=== PATIENT | female | born 1980 | race Caucasian/White ===

== ENCOUNTER 2018-12-24 07:42 | Emergency (ER) | payer MEDICAID ==
[~2018-12-24] VITALS: Ht 160 cm; Wt 72.0 kg
[~2018-12-24 07:42] MED LIST: AMOX500C2 PO; CIPR500T4 PO; FIORICET PO; HYDR-3498 PO; IBUP-1541 PO; IBUP-1542 PO; METH500T8 PO; OMEP40CA3 PO; TRAM50TA2 PO
[2018-12-24 07:45] VITALS: BP 155/72; PULSE 93; RESP 16; Ht 160 cm; Wt 72.0 kg
[2018-12-24] MEDS ORDERED: NAPR-985 PO (09:14)
--- NOTE | 2018-12-24 09:52 | ERD ---
ER Documentation Chief Complaint Chief Complaint pt is bib self with c/o back and abd pain for a few days HPI 38-year-old female presenting with generalized abdominal pain and back pain for a few days. She states is in the flank region. She has an IUD but she is unsure she is possibly . Her last bowel movement was about 1 hour prior to my evaluation. Denies any vomiting or diarrhea. Denies fevers. Has not taken medications for symptoms. Denies dysuria. Denies medical problems. NKDA. Surgical history denies. Social history denies ROS All systems reviewed and are negative except as per history of present illness. Medications Home Meds Active Scripts Naproxen* (Naprosyn*) 500 Mg Tablet, 500 MG PO BID PRN for PAIN AND/OR INFLAMMATION, #30 TAB Prov:MILEY THOMPSON PA-C 12/24/18 Tramadol HCl (Tramadol HCl) 50 Mg Tablet, 50 MG PO Q4 PRN for PAIN, #16 TAB Prov:MONTEZ JARAMILLO MD 12/02/15 Ibuprofen* (Motrin*) 600 Mg Tab, 600 MG PO Q6, #20 TAB Prov:MONTEZ JARAMILLO MD 12/02/15 Acetamin/Butalbital/Caffeine* (Fioricet*) 1 Tab Tab, 1 TAB PO Q4H PRN for PAIN LEVEL 1-5, #30 TAB Prov:ROBERTA CAVAZOS NP 09/19/15 Omeprazole* (Prilosec*) 40 Mg Capsule.dr, 40 MG PO DAILY for 14 Days, CAP Prov:FATOU IRELAND NP 09/01/15 Hydrocodone Bit-Acetaminophen* ([place]*) 5-325 Mg Tab, 1 TAB PO Q6 PRN for PAIN, #20 TAB Prov:ROBERTA CAVAZOS NP 08/21/15 Ciprofloxacin Hcl* (Ciprofloxacin Hcl*) 500 Mg Tablet, 500 MG PO BID for 10 Days, TAB Prov:ROBERTA CAVAZOS NP 08/21/15 Ibuprofen* (Ibuprofen*) 400 Mg Tablet, 400 MG PO Q6H PRN for PAIN for 30 Days, TAB Prov:SHORTY VELASCO 04/05/15 Reported Medications Methocarbamol* (Methocarbamol*) Unknown Strength Tablet, PO Q8, TAB 16/16 Amoxicillin* (Amoxicillin*) Unknown Strength Cap, PO TID for 10 Days, CAP 09/19/15 Allergies Allergies: Coded Allergies: No Known Drug Allergies (Verified Allergy, Mild, 08/21/15) PMhx/Soc Medical and Surgical Hx: pt denies Surgical Hx History of Surgery: No Anesthesia Reaction: No Hx Neurological Disorder: No Hx Respiratory Disorders: No Hx Cardiac Disorders: Yes (HTN) Hx Psychiatric Problems: No Hx Miscellaneous Medical Probl: Yes (DM) Hx Alcohol Use: No Hx Substance Use: No Hx Tobacco Use: No Smoking Status: Never smoker FmHx Family History: No diabetes, No coronary disease, No other Physical Exam Vitals Vital Signs Date Temp Pulse Resp B/P (MAP) Pulse Ox O2 O2 Flow FiO2 Time Delivery Rate 12/24/18 98.3 93 16 155/72 99 07:45 (99) Physical Exam GENERAL: The patient is well-appearing, well-nourished, in no acute distress CHEST: Clear to auscultation bilaterally. There are no rales, wheezes or rhonchi. HEART: Regular rate and rhythm. No murmurs, clicks, rubs or gallops. ABDOMEN:Soft, nontender and nondistended. Good bowel sounds. No rebound or guarding. No gross peritonitis. No gross organomegaly or masses. BACK: No midline or flank tenderness. Results 24 hrs Laboratory Tests Test 12/24/18 08:34 12/24/18 08:36 Bedside Urine pH (LAB) 7.0 Bedside Urine Protein (LAB) Negative Bedside Urine Glucose (UA) Negative Bedside Urine Ketones (LAB) Negative Bedside Urine Blood Negative Bedside Urine Nitrite (LAB) Negative Bedside Urine Leukocyte Esterase (L Negative POC Beta HCG, Qualitative NEGATIVE Procedures/MDM DIAGNOSTIC IMAGING REPORT Patient: ANN PARSONS : 1980 Age: 38 Sex: F [id number] DOS: 12/24/18 0000 Ordering MD: LILLIAN THOMPSON PA-C Location: [facility] Room/Bed: PROCEDURE: US Pelvis Non-OB Abdominal CLINICAL INDICATION: Pelvic pain TECHNIQUE: Multiple sonographic images of the pelvis were obtained utilizing a transabdominal and endovaginal technique. The images were reviewed on a PACS workstation. COMPARISON: CT abdomen pelvis 08/21/2015 FINDINGS: Anteverted uterus is homogeneous in appearance. Intrauterine device noted in satisfactory position. The endometrial stripe complex is normal. Trace fluid in the endometrial canal. The right ovary is normal in appearance with doppler flow. 2.7 cm right ovarian cyst. The left ovary is normal in appearance with doppler flow. Trace fluid is present within the pelvis. Measurements (cm): Endometrium: 0.78 cm Uterus: 7.9 cm x 5.5 cm x 4.8 cm Right Ovary: 4.69 cm x 2.99 cm x 2.41 cm Left Ovary: 2.94 cm x 1.46 cm x 0.95 cm IMPRESSION: Intrauterine device in satisfactory position. Right ovarian corpus luteum cyst with hemorrhage. Trace free fluid in the pelvis. No acute abnormality. MDM: 38-year-old female complaining of pelvic pressure and discomfort. Patient's exam is non-concerning. I do not feel there is indication for blood work or imaging. Patient is recommended to follow-up with primary care. Her urine is negative. Patient is told if symptoms change or worsen to return immediately to the ER. All questions answered at discharge Departure Diagnosis: Primary Impression: Pelvic pain Additional Impression: Ovarian cyst Condition: Stable Patient Instructions: Ovarian Cyst, Pelvic Pain, Unknown Cause Referrals: COMM[facility] YOU HAVE RECEIVED A MEDICAL SCREENING EXAM AND THE RESULTS INDICATE THAT YOU DO NOT HAVE A CONDITION THAT REQUIRES URGENT TREATMENT IN THE EMERGENCY DEPARTMENT. FURTHER EVALUATION AND TREATMENT OF YOUR CONDITION CAN WAIT UNTIL YOU ARE SEEN IN YOUR DOCTORS OFFICE WITHIN THE NEXT 1-2 DAYS. IT IS YOUR RESPONSIBILITY TO MAKE AN APPOINTMENT FOR FOLOW-UP CARE. IF YOU HAVE A PRIMARY DOCTOR --you should call your primary doctor and schedule an appointment IF YOU DO NOT HAVE A PRIMARY DOCTOR YOU CAN CALL OUR PHYSICIAN REFERRAL HOTLINE AT IF YOU CAN NOT AFFORD TO SEE A PHYSICIAN YOU CAN CHOSE FROM THE FOLLOWING [facility] [id number] [facility] [address] [facility] [address] [facility] [address] [facility] [address] [facility] [facility] [address] Additional Instructions: FOLLOW UP WITH YOUR PRIMARY CARE PHYSICIAN TOMORROW.Return to this facility if you are not improving as expected. MILEY THOMPSON PA-C Dec 24, 2018 09:52
== END 2018-12-24 09:25 | disposition home or self-care (01) ==
LOC: FTE 07:42
DX: N83.201 Unspecified ovarian cyst, right side (principal); R10.2 Pelvic and perineal pain; I10 Essential (primary) hypertension; E11.9 Type 2 diabetes mellitus without complications
CPT/HCPCS: 76830; 76856; 81003; 81025; Z7502